=== PATIENT | male | born 1950 | race Caucasian/White ===

== ENCOUNTER → 2024-07-11 15:24 | Day surgery (SDC) | payer SELFPAY ==
[2024-07-11] VITALS (9 sets, daily range): BP systolic 20–172; BP diastolic 61–74; BMI 22.2
== END ==
LOC: SDS 15:24
PROVIDERS: ATTENDING PHYSICIAN Internal Medicine Gastroenterology; FAMILY PHYSICIAN Internal Medicine
DX: K80.70 Calculus of gallbladder and bile duct without cholecystitis without obstruction (principal); R74.01 Elevation of levels of liver transaminase levels; Z90.49 Acquired absence of other specified parts of digestive tract; K80.50 Calculus of bile duct without cholangitis or cholecystitis without obstruction
CPT/HCPCS: 43264; 74330; 76000; C1726; C1769